=== PATIENT | male | born 1965 | race Caucasian/White ===

== ENCOUNTER 2018-11-24 18:34 | Emergency (ER) | payer OTHER ==
[~2018-11-24] VITALS: Ht 185.4 cm; Wt 95.3 kg
[2018-11-24] MEDS ORDERED: CYCLOBENZAPRINE10 MG PO (19:49)
[2018-11-24] MEDS ORDERED: DICLOFENAC SODI50 MG PO (19:49)
[2018-11-24] MEDS ORDERED: ORPHENADRINE C100 MG PO (19:49)
== END 2018-11-24 20:01 | disposition home or self-care (01) ==
LOC: ER 18:34
DX: S13.8XXA Sprain of joints and ligaments of other parts of neck, initial encounter (principal); X50.0XXA Overexertion from strenuous movement or load, initial encounter; Y93.89 Activity, other specified; Y92.89 Other specified places as the place of occurrence of the external cause; Y99.8 Other external cause status

== ENCOUNTER 2019-10-15 09:10 | Emergency (ER) | payer OTHER ==
[~2019-10-15] VITALS: Ht 185.4 cm; Wt 95.3 kg
[~2019-10-15 09:10] MED LIST: CYCLOBENZAPRINE10 MG PO; DICLOFENAC SODI50 MG PO; ORPHENADRINE C100 MG PO
[2019-10-15] MEDS ORDERED: PEPCID AC20 MG PO (12:29)
[2019-10-15] MEDS ORDERED: PROTONIX40 MG PO (12:29)
[2019-10-15] MEDS ORDERED: DICY20TA PO (12:29)
== END 2019-10-15 13:02 | disposition home or self-care (01) ==
LOC: ER 09:10
DX: K29.70 Gastritis, unspecified, without bleeding (principal); R10.84 Generalized abdominal pain

== ENCOUNTER 2021-07-11 09:36 | Emergency (ER) | payer OTHER ==
[~2021-07-11] VITALS: Ht 185.4 cm; Wt 102.5 kg
[~2021-07-11 09:36] MED LIST changes: +DICY20TA PO; +PEPCID AC20 MG PO; +PROTONIX40 MG PO
[2021-07-11] MEDS ORDERED: PRILOSEC OTC20 MG PO (10:08)
[2021-07-11] MEDS ORDERED: LEVSIN/SL0.125 MG SL (13:59)
[2021-07-11] MEDS ORDERED: PEPCID AC20 MG PO (13:59)
== END 2021-07-11 14:31 | disposition home or self-care (01) ==
LOC: ER 09:36
DX: K29.00 Acute gastritis without bleeding (principal)

== ENCOUNTER 2024-07-12 08:34 | Emergency (ER) | payer OTHER ==
[~2024-07-12] VITALS: Ht 185.4 cm; Wt 108.4 kg
[~2024-07-12 08:34] MED LIST changes: +LEVSIN/SL0.125 MG SL; +PRILOSEC OTC20 MG PO
[2024-07-12] MEDS ORDERED: CLONIDINE HCL 0.1 MG TABLET PO STA (09:16)
[2024-07-12] MEDS ORDERED: CLONIDINE HCL 0.1 MG TABLET PO ONE (09:22)
[2024-07-12 09:49] LABS: HEMOGLOBIN 13.5 g/dL (13-16.00); MEAN CELL VOLUME 89.6 fL (80.0-100.00); MEAN CORPUSCULAR HEMOGLOBIN 29.6 pg (27.00-32.0); PLATELET COUNT 271 K/uL (150-450); RED BLOOD COUNT 4.57 M/uL (4.00-6.00); RED CELL DISTRIBUTION WIDTH 12.8 % (11.5-14.5)
[2024-07-12 10:06] LABS: URINE APPEARANCE Clear; URINE BILIRRUBIN Negative (NEGATIVE); URINE BLOOD Negative; URINE COLOR Yellow; URINE GLUCOSE Negative (NEGATIVE); URINE KETONE Negative (NEGATIVE); URINE LEUKOCYTE Negative; URINE NITRATE Negative; URINE PROTEIN Negative (NEGATIVE); URINE UROBILINOGEN 0.2 E.U./dl
[2024-07-12 10:10] LABS: URINE WBC 1.8 uL (0.0-23.2)
[2024-07-12 10:17] LABS: URINE BACTERIA 1.2 uL (0.0-1933); URINE EPITHELIAL CELLS 0.4 uL (0.0-38.8); URINE RBC 0.7 uL (0.0-20.8)
[2024-07-12 10:49] LABS: ALBUMIN 3.5 gm/dL (3.4-5.0); ALKALINE PHOSPHATASE 87 U/L (50-136); ALT/SGPT 24 U/L (12-78); ANION GAP 10 (10.0-20.0); AST/SGOT 23 U/L (15-37); BILIRUBIN TOTAL 0.39 mg/dL (0.3-1.2); BILIRUBIN,CONJUGATED < 0.10 mg/dL (0.0-0.2); BILIRUBIN,UNCONJUGATED 0.29 mg/dL (0.0-0.6); BLOOD UREA NITROGEN 12 mg/dL (7-18); BUN CREA RATIO 11 (7.0-25.0); CALCIUM 9.5 mg/dL (8.5-10.1); CARBON DIOXIDE 29 mEq/L (21-32); CHLORIDE 106 mmol/L (98-107); CREATININE SERUM 1.09 mg/dL (0.70-1.30); GLUCOSE FASTING 109 mg/dL (65-100); OSMOLALITY SERUM 282 MOSM/KG (275-295); POTASSIUM 3.76 mEq/L (3.5-5.1); SODIUM 141 mmol/L (136-145)
== END 2024-07-12 11:21 | disposition home or self-care (01) ==
LOC: ER 08:35
PROVIDERS: General Practice
DX: R00.2 Palpitations (principal); R07.89 Other chest pain; R19.7 Diarrhea, unspecified; I10 Essential (primary) hypertension

== ENCOUNTER 2024-09-09 06:19 | Emergency (ER) | payer OTHER ==
[~2024-09-09] VITALS: Ht 185.4 cm; Wt 108.4 kg
[2024-09-09] MEDS ORDERED: cloNIDine HCL 0.2 MG TABLET PO STA (06:55)
[2024-09-09] MEDS ORDERED: LORazepam 1 MG TABLET PO STA (06:55)
[2024-09-09] MEDS ORDERED: CLONIDINE HCL 0.1 MG TABLET PO ONE (07:31)
[2024-09-09 08:03] LABS: BASO % 0.8 % (0.1-1.2); EOS # 0.05 (0.04-0.54); EOS % 0.7 % (0.7-7.0); HEMATOCRIT 43.8 % (40.1-51.0); HEMOGLOBIN 14.4 g/dL (13.7-17.5); LYMPH # 2.74 (1.18-3.74); LYMPH % 35.6 % (19.3-53.1); MEAN CORPUSCULAR HEMOGLOBIN 28.5 pg (25.6-32.2); MONO # 0.66 (0.24-0.82); MONO % 8.6 % (4.7-12.5); NEUT # 4.17 (1.56-6.13); NEUT % 54.2 % (34.0-71.1); PLATELET COUNT 294 K/uL (163-369); RED BLOOD COUNT 5.05 M/uL (4.63-6.08); RED CELL DISTRIBUTION WIDTH 12.7 % (11.6-14.4)
[2024-09-09 08:12] LABS: INR 1.02; PROTHROMBIN TIME 11.1 SECONDS (9.0-11.5)
[2024-09-09 08:23] LABS: ALBUMIN 4.2 gm/dL (3.4-5.0); BILIRUBIN TOTAL 0.47 mg/dL (0.3-1.2); CALCIUM 9.7 mg/dL (8.5-10.1); CREATININE SERUM 1.13 mg/dL (0.70-1.30); GFR 65.97; GLOBULINA 3.9 G/DL (2.4-3.5); POTASSIUM 4.24 mEq/L (3.5-5.1); TOTAL PROTEIN 8.1 gm/dL (6.4-8.2)
[2024-09-09 08:49] LABS: PARTIAL THROMBOPLASTIN TIME 24.8 SECONDS (22.0-34.0)
[2024-09-09 08:52] LABS: D DIMER < 0.19 MG/L
[2024-09-09] MEDS ORDERED: AVAPRO300 MG PO (10:23)
== END 2024-09-09 10:28 | disposition home or self-care (01) ==
LOC: ER 06:31
DX: I10 Essential (primary) hypertension (principal)